=== PATIENT | male | born 2000 ===

== ENCOUNTER 2023-12-30 10:44 | Outpatient (CLI) | payer OTHER, SELFPAY | END 2023-12-30 10:45 | disposition home or self-care (01) | LOC: ANHBWCAUD 10:46 | PROVIDERS: PCP Nurse Practitioner Family; Visit Provider Nurse Practitioner Family | DX: H90.42 Sensorineural hearing loss, unilateral, left ear, with unrestricted hearing on the contralateral side (principal) | CPT/HCPCS: 92557; 92567 ==